=== PATIENT | female | born 1970 | race Two or more races ===

== ENCOUNTER 2016-12-06 02:06 | Emergency (ER) | payer MEDICAID ==
[~2016-12-06] VITALS: Ht 162.6 cm; Wt 56.5 kg
[~2016-12-06 02:06] MED LIST: VICES
[2016-12-06 02:15] VITALS: Ht 162.6 cm; Wt 56.5 kg
--- NOTE | 2016-12-06 03:06 | ERD ---
ER Documentation Chief Complaint Date/Time DATE: 12/06/16 TIME: 03:01 Chief Complaint right wrist pain,no trauma,no deformity noted HPI 46-year-old female presents to emergency department for complaints of right wrist pain that started yesterday. Patient is always had problems with the right wrist, tonight it got more painful. Patient is to type a lot. Patient complaining of pain throbbing pain 6/10 scale, worse upon movement of the thumb of the right hand. Patient denies any deformity. Patient denies any numbness or tingling. Patient took some Motrin for pain with mild relief. ROS All systems reviewed and are negative except as per history of present illness. Medications Home Meds Reported Medications Acetaminophen/Hydrocodone (Vicodin Es) 1 Tab Tab 07/03/12 Allergies Allergies: Coded Allergies: No Known Allergies (Verified Allergy, Mild, 06/03/13) PMhx/Soc History of Surgery: Yes (gallbladder removal) Anesthesia Reaction: No Hx Neurological Disorder: No Hx Respiratory Disorders: No Hx Cardiac Disorders: No Hx Psychiatric Problems: No Hx Miscellaneous Medical Probl: No Hx Alcohol Use: Yes (SOCIALLY) Hx Substance Use: Yes (marijuana) Hx Tobacco Use: No Smoking Status: Never smoker FmHx Family History: No coronary disease, No diabetes, No other Physical Exam Vitals Vital Signs Date Time Temp Pulse Resp B/P Pulse Ox O2 Delivery O2 Flow Rate FiO2 12/06/16 02:15 99.0 89 18 114/59 98 Physical Exam GENERAL: The patient is well developed and appropriate for usual state of health, in no apparent distress. CHEST: Clear to auscultation bilaterally. There are no rales, wheezes or rhonchi. HEART: Regular rate and rhythm. No murmurs, clicks, rubs or gallops. No S3 or S4. ABDOMEN: Soft, nontender and nondistended. Good bowel sounds. No rebound or guarding. No gross peritonitis. No gross organomegaly or masses. No Rodriguez sign or McBurney point tenderness. BACK: No midline or flank tenderness. EXTREMITIES: Positive with an Sukhjinder Test. Tenderness on palpation on the radial aspect of the right wrist, no swelling noted. Able to do full range of motion without any restriction. Equal pulses bilaterally. There is no peripheral clubbing, cyanosis or edema. No focal swelling or erythema. Full range of motion. Grossly neurovascularly intact. NEURO: Alert and oriented. Cranial nerves 2-12 intact. Motor strength in all 4 extremities with 5/5 strength. Sensation grossly intact. Normal speech and gait. SKIN: There is no apparent rash or petechia. The skin is warm and dry. HEMATOLOGIC AND LYMPHATIC: There is no evidence of excessive bruising or lymphedema. No gross cervical, axillary, or inguinal lymphadenopathy. Results 24 hrs PROCEDURE: XR wrist. CLINICAL INDICATION: Trauma. TECHNIQUE: AP, lateral and oblique views of the right wrist was obtained. COMPARISON: There are no similar studies submitted for comparison. FINDINGS: There is no acute fracture or dislocation. No destructive osseous lesions are seen. The joint spaces are unremarkable. IMPRESSION: No acute fracture or dislocation. RPTAT: HIKT .Juan Naranjo MD, Date Time Electronically viewed and signed by .Juan Naranjo MD, on 12/06/2016 03:22 .T/ CC: LIONEL DIAZ METER ENGINEER After receiving patients xray report, a _wrist Velcro splint was applied on the patients right wrist. After application of the splint, patient has intact sensation and circulation on distal area of the affected joint. Patient does not complain of numbness or tingling after application of the splint. Patient tolerated procedure well. Procedures/MDM Medical Decision Making: Patient's pain is most likely consistent with a wrist pain or De Quervain's tenosynovitis. There is no suspicion for neurovascular compromise. Patient has intact sensation and circulation of the affected extremity. There is low suspicion for septic arthritis. Patient does not have any fever. Radiology exams of the affected area does not show any fracture or dislocation. Disposition: Home. Patient is given prescription for ibuprofen for mild to moderate pain, Aspers for severe pain. Patient was advised to elevate the affected area and apply ice on affected area. Patient was advised that if symptoms are worse, numbness, tingling, high fever, unable to move joint, worsening symptoms, to return to emergency department immediately. Otherwise, patient is advised to follow up with the primary care doctor in 5-7 days for reevaluation of symptoms. Departure Diagnosis: Primary Impression: Wrist pain Laterality: right Qualified Code: M25.531 - Right wrist pain Condition: Stable Patient Instructions: De Quervain Tenosynovitis, Wrist Sprain Additional Instructions: Patient is given prescription for ibuprofen for mild to moderate pain, Aspers for severe pain. Patient was advised to elevate the affected area and apply ice on affected area. Patient was advised that if symptoms are worse, numbness, tingling, high fever, unable to move joint, worsening symptoms, to return to emergency department immediately. Otherwise, patient is advised to follow up with the primary care doctor in 5-7 days for reevaluation of symptoms. LIONEL DIAZ NP Dec 06, 2016 03:05
--- NOTE | 2016-12-06 03:22 | RADRPT ---
PROCEDURE: XR wrist. CLINICAL INDICATION: Trauma. TECHNIQUE: AP, lateral and oblique views of the right wrist was obtained. COMPARISON: There are no similar studies submitted for comparison. FINDINGS: There is no acute fracture or dislocation. No destructive osseous lesions are seen. The joint spaces are unremarkable. IMPRESSION: No acute fracture or dislocation. RPTAT: HIKT .Juan Naranjo MD, MD Date Time Electronically viewed and signed by .Juan Naranjo MD, on 12/06/2016 03:22 .T/
[2016-12-06] MEDS ORDERED: IBUP-1542 PO (03:30)
[2016-12-06] MEDS ORDERED: HYDR-906 PO (03:30)
== END 2016-12-06 03:36 | disposition home or self-care (01) ==
LOC: FTE 02:06
DX: M25.531 Pain in right wrist (principal)

== ENCOUNTER 2017-11-14 00:53 | Emergency (ER) | END 2017-11-14 03:02 | disposition home or self-care (01) ==

== ENCOUNTER 2019-01-16 23:21 | Emergency (ER) | payer SELFPAY ==
[~2019-01-16] VITALS: Ht 162.6 cm; Wt 55.3 kg
[~2019-01-16 23:21] MED LIST changes: +HYDR-4011 PO; +IBUP-1542 PO; +NAPR-985 PO
[2019-01-16 23:24] VITALS: BP 103/55; PULSE 89; RESP 16; Ht 162.6 cm; Wt 55.3 kg
[2019-01-17] MEDS ORDERED: HYDROCODONE/APAP (5/325) TAB PO STA (00:18)
[2019-01-17] MEDS ORDERED: ONDANSETRON (ODT) 4 MG TAB ODT STA (00:19)
== END 2019-01-17 02:28 | disposition home or self-care (01) ==
LOC: FTE 23:21
DX: N83.201 Unspecified ovarian cyst, right side (principal); F17.210 Nicotine dependence, cigarettes, uncomplicated
CPT/HCPCS: 36415; 76856; 80048; 81001; 81025; 85025; 87086